=== PATIENT | female | born 1940 | race Caucasian/White ===

== ENCOUNTER 2017-04-03 21:01 | Observation (INO) ==
[2017-04-03 21:51] LABS: Basophils % 0.6 %; Eosinophils # 0.1 K/mcL (0.0-0.6); Eosinophils % 2.6 %; Hematocrit 33.7 % (35.3-44.9); Hemoglobin 10.7 g/dL (11.5-15.4); Immature Granulocytes % 0.2 % (0-4); Lymphocytes # 1.1 K/mcL (0.6-4.6); Lymphocytes % 24.1 %; Mean Corpuscular HGB Conc 31.8 g/dL (31.6-35.5); Mean Corpuscular Hemoglobin 26.8 pg (28.0-33.3); Mean Corpuscular Volume 84.3 fL (83.0-100.0); Mean Platelet Volume 9.6 fL (9.4-12.4); Monocytes # 0.5 K/mcL (0.0-1.3); Monocytes % 11.6 %; Neutrophils # 2.8 K/mcL (1.6-8.9); Platelet Count 252 K/mcL (140-400); Red Cell Distribution Width 16.6 % (11.5-14.5); Segmented Neutrophils % 60.9 %
--- NOTE | 2017-04-03 22:01 | Emergency Department Note ---
Disposition Clinical Impression: Chest pain Qualifiers: Chest pain type: unspecified Qualified Code(s): R07.9 - Chest pain, unspecified Disposition: Admitted As Inpatient Condition: Good Chest Pain HPI - General Chief Complaint: ED Chest Pain Stated Complaint: CP Time Seen by Provider: 04/03/17 21:11 Source: patient Mode of arrival: private vehicle Limitations: no limitations Vital Signs Reviewed: Yes Nursing Notes Reviewed: Yes - History of Present Illness HPI Narrative: 76-year-old female history of CABG in 1996, hypertension, hyperlipidemia who presents to the ER with a chief complaint of chest pain. Patient is a poor historian reporting that she has had chronic left shoulder pain and had a stress test yesterday ordered by her [employer] solution architect preoperatively. She was called today with results. She then goes on to say that she has had chest pain for a week. She had some chest pain today and took a nitroglycerin and the pain went away. She called whoever called her about her stress test result and they told her to go to the ER. She reports her pain came back and she took a second nitroglycerin but it did not do anything. She reports shortness of breath with this. No diaphoresis, dizziness, nausea or vomiting. No other complaints. Pt complaint: chest pain Onset (ago): day(s) Duration: intermittent Onset: during exertion Pain Location: substernal Severity: moderate Severity scale (1-10): 8 Quality: tightness, aching, heaviness, sharp Pain Radiation: none Improves with: nothing Worsens with: exertion Associated symptoms: Reports: dyspnea. Denies: nausea, vomiting, diaphoresis Treatments prior to arrival chest pain: none - Related Data On Oral Contraceptives: No Home Medications Medication Instructions Recorded Confirmed Amlodipine Besylate 10 mg PO DAILY 04/03/17 04/03/17 Aspirin Enteric Coated [Aspirin EC] 81 mg PO DAILY 04/03/17 04/03/17 Atorvastatin [Lipitor] 40 mg PO HS 04/03/17 04/03/17 Calcipotriene [Dovonex] 1 appl TP DAILY 04/03/17 04/03/17 Carvedilol [Carvedilol] 1.5625 mg PO BID 04/03/17 04/03/17 Diclofenac Sodium [Voltaren] 1 appl TP QID PRN 04/03/17 04/03/17 Furosemide [Lasix] 40 mg PO BID PRN 04/03/17 04/03/17 HYDROcodone/Acet 5/325 mg [[place] 1 tab PO Q6H PRN 04/03/17 04/03/17 5-325 mg] Iron With Vit C 1 tab PO BID 04/03/17 04/03/17 Losartan [Cozaar] 12.5 mg PO DAILY 04/03/17 04/03/17 Metformin HCl [Glucophage] 1,000 mg PO BID 04/03/17 04/03/17 Mirabegron [Myrbetriq] 50 mg PO DAILY 04/03/17 04/03/17 Multivitamin with Iron 1 each PO TID 04/03/17 04/03/17 [Multivitamins with Iron] Nitroglycerin 0.4 mg PO Q5M PRN 04/03/17 04/03/17 Saccharomyces Boulardii [Florastor] 250 mg PO DAILY 04/03/17 04/03/17 Vit E With D Alpha 1 tab PO DAILY 04/03/17 04/03/17 Allergies Allergy/AdvReac Type Severity Reaction Status Date / Time codeine Allergy Rash Verified 04/02/17 08:38 latex Allergy Rash Verified 04/02/17 08:38 Neomycin Allergy Rash Verified 04/02/17 08:38 Penicillins Allergy Rash Verified 04/02/17 08:38 povidone-iodine Allergy Rash Verified 04/02/17 08:34 [From Betadine] soap [From Betadine] Allergy Rash Verified 04/02/17 08:34 All systems ED: reviewed and negative except as stated. Constitutional: Denies: fever Cardiovascular: Reports: chest pain, dyspnea on exertion Respiratory: Reports: dyspnea. Denies: cough Gastrointestinal: Denies: abdominal pain, nausea, vomiting Chest Pain PMH - Past Medical History Medical history: Reports: CHF, diabetes, hyperlipidemia, hypertension Psychiatric history: Reports: no psych history - Social History Smoking Status: Former smoker Alcohol use: Reports: none Drug use: Reports: none Physical Exam - General Limitations: no limitations General appearance: alert, in no apparent distress - Head Head exam: atraumatic - Eye Eye exam: Present: normal appearance - ENT ENT exam: normal exam - Neck Neck exam: Present: normal inspection - Chest Chest inspection: Present: normal inspection, symmetric chest wall rise - Respiratory Respiratory exam: Present: normal lung sounds bilaterally - Cardiovascular Cardiovascular exam: Present: regular rate, normal rhythm, normal heart sounds - Abdominal Exam Abdominal exam: Present: soft, Non-Tender. Absent: tenderness - Extremities Exam Extremities exam: Present: normal inspection, full ROM - Expanded Upper Extremity Exam Shoulder exam: Present: normal inspection, full ROM Arm exam: Present: normal inspection, full ROM Elbow exam: Present: normal inspection, full ROM Forearm/Wrist exam: Present: normal inspection, full ROM Hand exam: Present: normal inspection, full ROM - Expanded Lower Extremity Exam Hip/Pelvis exam: Present: normal inspection, full ROM Upper leg exam: Present: normal inspection, full ROM Knee exam: Present: normal inspection, full ROM Lower leg exam: Present: normal inspection, full ROM Ankle exam: Present: normal inspection, full ROM Foot/toe exam: Present: normal inspection, full ROM - Skin Skin exam: Present: warm, dry Course Course Narrative: Patient seen and examined. Vital signs reviewed. We will get an EKG, chest x- ray as well as labs including troponin. We will give her aspirin here as well as a trial of nitroglycerin. - Reevaluation(s) Reevaluation #1: I reviewed her stress test results with mild perfusion deficit at the apex with inability to exclude ischemia. Vital Signs Temperature 99 F 04/03/17 21:05 Pulse Rate 90 04/03/17 21:05 Respiratory Rate 12 04/03/17 21:05 Blood Pressure 156/103 04/03/17 21:05 O2 Sat by Pulse Oximetry 96 04/03/17 21:05 Temperature 99 F 04/03/17 21:05 Pulse Rate 87 04/03/17 22:36 Respiratory Rate 18 04/03/17 22:36 Blood Pressure 120/62 04/03/17 22:36 O2 Sat by Pulse Oximetry 95 04/03/17 22:36 Oxygen Delivery Oxygen Delivery Room Air Chest Pain - MDM Narrative Medical decision making narrative: 76-year-old female presents to the ER due to chest pain. Prior history of CABG in 1996. She had a stress test yesterday preoperatively with shoulder repair in the near future. She was called with the results today then was having chest pain and took nitroglycerin and it improved so she was told to come in. Her pain has been going on longer which sounds like for the last week. She is a poor historian. Her EKG is nonischemic here. Chest x-ray unremarkable. Initial troponin within normal limits. Patient given aspirin, nitroglycerin and fentanyl here. She is admitted to the hospitalist service for chest pain. - Medical Records Medical records reviewed: Yes I reviewed the patient's medical records. Small sized, mild intensity decreased perfusion in the apex during stress. Mild ischemia cannot be excluded. Occasional PACs and short runs of SVT noted during stress. PVCs are observed during recovery. Pharmacologic stress ECG is negative for ischemia at level of heart rate achieved. No appreciable change from baseline ECG. Gated EF > 70%. - Lab Data Lab results reviewed: Yes I reviewed the patient's lab results. Result diagrams: 04/03/17 21:40 04/03/17 21:40 Lab Results 04/03/17 04/03/17 04/03/17 Range/Units 21:40 21:40 21:40 WBC 4.6 (4.3-11.1) K/mcL RBC 4.00 (3.82-4.97) M/mcL Hgb 10.7 L (11.5-15.4) g/dL Hct 33.7 L (35.3-44.9) % MCV 84.3 (83.0-100.0) fL MCH 26.8 L (28.0-33.3) pg MCHC 31.8 (31.6-35.5) g/dL RDW 16.6 H (11.5-14.5) % Plt Count 252 (140-400) K/mcL MPV 9.6 (9.4-12.4) fL Immature Gran % 0.2 (0-4) % Seg Neutrophils % 60.9 % Lymphocytes % 24.1 % Monocytes % 11.6 % Eosinophils % 2.6 % Basophils % 0.6 % Neutrophils # 2.8 (1.6-8.9) K/mcL Lymphocytes # 1.1 (0.6-4.6) K/mcL Monocytes # 0.5 (0.0-1.3) K/mcL Eosinophils # 0.1 (0.0-0.6) K/mcL Basophils # 0.0 (0.0-0.2) K/mcL PT 11.0 (9.4-12.1) Seconds INR 1.0 APTT 31.2 (26.0-36.0) Seconds Sodium (136-145) mEq/L Potassium (3.5-5.1) mEq/L Chloride (98-107) mEq/L Carbon Dioxide (23-29) mEq/L BUN (8-23) mg/dL Creatinine (0.60-1.20) mg/dL Est GFR ( Amer) (> 60) Est GFR (Non-Af Amer) (> 60) BUN/Creatinine Ratio (6-26) Glucose (70-105) mg/dL Calculated Osmolality (280-300) Calcium (8.6-10.3) mg/dL Troponin I (< 0.04) ng/mL B-Natriuretic Peptide 102 H (Less than 100) pg/mL 04/03/17 04/03/17 Range/Units 21:40 21:40 WBC (4.3-11.1) K/mcL RBC (3.82-4.97) M/mcL Hgb (11.5-15.4) g/dL Hct (35.3-44.9) % MCV (83.0-100.0) fL MCH (28.0-33.3) pg MCHC (31.6-35.5) g/dL RDW (11.5-14.5) % Plt Count (140-400) K/mcL MPV (9.4-12.4) fL Immature Gran % (0-4) % Seg Neutrophils % % Lymphocytes % % Monocytes % % Eosinophils % % Basophils % % Neutrophils # (1.6-8.9) K/mcL Lymphocytes # (0.6-4.6) K/mcL Monocytes # (0.0-1.3) K/mcL Eosinophils # (0.0-0.6) K/mcL Basophils # (0.0-0.2) K/mcL PT (9.4-12.1) Seconds INR APTT (26.0-36.0) Seconds Sodium 135 L (136-145) mEq/L Potassium 3.4 L (3.5-5.1) mEq/L Chloride 99 (98-107) mEq/L Carbon Dioxide 28 (23-29) mEq/L BUN 15 (8-23) mg/dL Creatinine 0.53 L (0.60-1.20) mg/dL Est GFR ( Amer) > 60 (> 60) Est GFR (Non-Af Amer) > 60 (> 60) BUN/Creatinine Ratio 28 H (6-26) Glucose 224 H (70-105) mg/dL Calculated Osmolality 288 (280-300) Calcium 9.5 (8.6-10.3) mg/dL Troponin I < 0.03 (< 0.04) ng/mL B-Natriuretic Peptide (Less than 100) pg/mL - Radiology Data Radiology results reviewed: Yes I reviewed the patient's radiology results. Chest X-Ray 04/03/17 21:12 IMPRESSION: No acute pulmonary process. D/ / 04/03/2017 21:47:11 Marilia Barros MD / rolando Interpreting Provider: Marilia Barros MD - EKG Data EKG attestation: Yes I reviewed and interpreted this EKG. EKG results narrative: EKG demonstrates sinus rhythm with PACs with a rate of 78 bpm. Normal axis. Normal intervals. Normal R-wave progression. No gross ST elevations or depressions. No acute ischemic findings. No significant changes from previous EKG dated 05/11/12 Heart Score - Score History: Slightly Suspicious EKG: Normal Age: Greater than 65 Risk Factors: Equal/Greater than 3 risk factor or history of atherosclerotic disease Troponin: Less than normal limit HEART Score Total: 4 S.B.A.R. - S.B.A.R. Situation: Demographics, MOA Background: Presenting Complaint, Relevant PMH, Meds, & Allergies Assessment: Course and respsone to treatment, Exam Concerns, Patient/Family Expectation, Pertinant Lab Results Recommendation: Barrier(s) to disposition, Recommendation based on pending studies, treatments, or consults S.B.A.R. Report Given to: Dr. Oshea [email or web address] Repor Time: 22:52 Attestation Statement - Attestation Attestation: I, Yehuda Garcia MD, personally evaluated this patient and discussed their management with the resident physician. I reviewed the resident's note and agree with the documented findings, medical decision making, and plan of care. 76-year-old female presents to the emergency department with a complaint of some left-sided chest pain in the left breast area radiating through to the left back. The pain also radiates to the left shoulder. Patient has chronic left shoulder pain and states she is unable to tell if this is from her shoulder or her heart or something else. She states this is different from her usual shoulder pain. She has a history of CABG and 5 coronary artery stents. She just had a stress test yesterday as part of a preoperative evaluation for shoulder surgery. Called today and advised that the stress test was abnormal. On examination patient is a well-developed well-nourished well-appearing elderly female in no acute distress. She is alert and oriented. There is no cyanosis or diaphoresis. Some tenderness to palpation over the left anterolateral chest wall. Breath sounds are clear and equal bilaterally. Heart regular rate and rhythm. Abdomen is soft and nontender with normal bowel sounds. Labs reviewed. Troponin negative. Chest x-ray negative. EKG shows a normal sinus rhythm with PACs. No acute ischemic changes. The hospitalist, Dr. Oshea, was consulted and accepted the admission of the patient.
[2017-04-03 22:06] LABS: Activated Partial Thrombo Time 31.2 Seconds (26.0-36.0)
[2017-04-03 22:09] LABS: BUN/Creatinine Ratio 28 (6-26); Blood Urea Nitrogen 15 mg/dL (8-23); Calcium 9.5 mg/dL (8.6-10.3); Carbon Dioxide 28 mEq/L (23-29); Chloride 99 mEq/L (98-107); Glucose 224 mg/dL (70-105); Osmolality,Calculated 288 (280-300); Potassium 3.4 mEq/L (3.5-5.1); Sodium 135 mEq/L (136-145); eGFR For African Americans > 60 (> 60); eGFR For Non-African Americans > 60 (> 60)
[2017-04-03] MEDS ORDERED: Aspirin 81 MG TAB.CHEW PO ONE (22:17)
[2017-04-03] MEDS: Nitroglycerin 0.4 MG TAB.SUBL SL PRN ×2 (22:24→22:37)
[2017-04-03] MEDS ORDERED: *HR* FentaNYL (PF) 100 MCG/2 ML VIAL IVP ONE (22:48)
[2017-04-04] MEDS ORDERED: Nitroglycerin 1 INCH/GM PACKET TP ONE (00:31)
[2017-04-04] MEDS ORDERED: Nitroglycerin 1 INCH/GM PACKET ONE (00:47)
[2017-04-04] MEDS ORDERED: *HR* FentaNYL (PF) 100 MCG/2 ML VIAL ONE ×2 (00:48→14:57)
[2017-04-04] MEDS: *HR* FentaNYL (PF) 100 MCG/2 ML VIAL IVP PRN ×2 (00:53→03:57)
[2017-04-04] MEDS ORDERED: *HR* Dextrose 50 % in Water (Syg) 50 ML SYRINGE IVP PRN (01:34)
[2017-04-04] MEDS ORDERED: Dextrose Gel 15 GM/37.5 ML TUBE PO PRN ×2 (01:34)
[2017-04-04] MEDS ORDERED: Acetaminophen 325 MG TABLET PO PRN (01:34)
[2017-04-04] MEDS ORDERED: Naloxone 0.4 MG/ML INJ IVP PRN (01:34)
[2017-04-04] MEDS ORDERED: D5% in Water 1,000 ML IVC PRN (01:34)
[2017-04-04] MEDS ORDERED: *HR* Heparin 5,000 UNIT/ML VIAL IVP PRN ×2 (01:53)
[2017-04-04] MEDS ORDERED: *HR* Heparin 5,000 UNIT/ML VIAL IVP ONE (01:53)
[2017-04-04] MEDS ORDERED: Heparin 25,000 UNIT/500 ML D5W 25,000 UNIT/500 ML BAG IVC SCH (02:00)
--- NOTE | 2017-04-04 02:03 | Internal Med History&Physical ---
Date of Encounter: 04/04/17 Time of Encounter: 01:20 Assessment and Plan (1) Chest pain Current visit: Yes Status: Acute 1. Based upon history and exam, I have a high clinical index of suspicion for PE. 2. I can not confirm whether patient has an IV Contrast Dye allergy. I therefore cancelled her CTA chest, started her on heparin gtt empirically, and ordered a VQ scan and BLE Dopplers for this morning. 3. If above negative, she will likely need LHC. 4. Consult cardiology. 5. Will cycle troponins and EKG's. Qualifiers: Chest pain type: chest pain on breathing Qualified Code(s): R07.1 - Chest pain on breathing; R07.81 - Pleurodynia (2) CAD (coronary artery disease) Current visit: Yes Status: Chronic 1. Continue home meds as appropriate. 2. Cardiac work-up and cardiology as above. Qualifiers: Coronary Disease-Associated Artery/Lesion type: bypass graft [place] vs. transplanted heart: [place] heart Associated angina: with stable angina Qualified Code(s): I25.708 - Atherosclerosis of coronary artery bypass graft(s) , unspecified, with other forms of angina pectoris (3) Type 2 diabetes mellitus Current visit: Yes Status: Chronic 1. Will hold home oral medications. 2. Will place on SSI and monitor glucose checks. Qualifiers: Diabetes mellitus complication status: with circulatory complication Diabetes mellitus complication detail: with other circulatory complications Diabetes mellitus longterm insulin use: without longterm use Qualified Code( s): E11.59 - Type 2 diabetes mellitus with other circulatory complications (4) DVT prophylaxis Current visit: Yes Status: Acute 1. Heparin gtt as above. Internal Medicine - H&P: HPI Chief complaint: chest pain Admitted From: Emergency Dept Plans for Post Hospital Care: Home History of present illness: Ms. Veras is a 76 year old female who presents the ER tonight with chest pain. She received a call earlier yesterday by her manager electronic office informing her that her stress test she had recently was abnormal and that she may require left heart catheterization. She had been having chest pain off and on for the last several weeks, which she thought was secondary to her left shoulder pain from arthritis. However, given the abnormal stress test and her ongoing chest pain, she was advised to come to ER for evaluation. Workup in the ER was negative. She was admitted to hospitalist service for further workup and care and possible cardiac intervention. Upon my assessment of the patient, patient is having periods of chest pain which are sharp in nature and associated with shortness of breath. She states the pain in her chest is different than her prior episodes of angina and MA. Upon further history, patient informs me that her mother of massive PE after giving to her sibling many years ago. There is no other family history of thromboembolism, however. Patient has never had DVT or PE in the past. However, her symptoms and body language are rather concerning for PE at the present time. I initially ordered a CTA of the chest. However, as I was ordering her CTA and noted that she is allergic to Betadine. I returned back to her room and inquired about her Betadine allergy, she states that she " swells up" and has a severe allergic reaction to Betadine. I asked her about IV dye allergy or any problems with left heart catheterization. She states she thinks she had received medication for her heart catheterization but was not sure if she needed to have premedication prior to IV contrast. I therefore canceled her CTA of the chest and I am placing her on heparin drip for high suspicion of PE. We will proceed with VQ scan and BLE Dopplers in the morning. She denies any blood loss or GI bleeding. Past Med Surg Social Fam HX - Past Medical History Attestation: Yes The following information was validated with the patient. Source: patient, old records reviewed Medical history: atrial fibrillation (paroxysmal), CHF, diabetes, hyperlipidemia , hypertension, myocardial infarction Psychiatric history: no psych history - Past Surgical History Surgical History: angioplasty/stent, coronary bypass (CABG) - Social History Smoking Status: Former smoker Smokeless Tobacco Status: No Alcohol use: none Drug use: none Current living situation: Home, With Family Activity Level: Independent ambulation - Family History Father Living Status: Age at : 48 Cause of : heart attack Hx Family Cardiac Disorders: Yes Mother Living Status: Age at : 37 Cause of : Blood clot Internal Medicine - H&P: Meds Amlodipine Besylate 10 mg PO DAILY 04/03/17 [History] Aspirin Enteric Coated [Aspirin EC] 81 mg PO DAILY 04/03/17 [History] Atorvastatin [Lipitor] 40 mg PO HS 04/03/17 [History] Calcipotriene [Dovonex] 1 appl TP DAILY 04/03/17 [History] Carvedilol [Carvedilol] 1.5625 mg PO BID 04/03/17 [History] Diclofenac Sodium [Voltaren] 1 appl TP QID PRN 04/03/17 [History] Furosemide [Lasix] 40 mg PO BID PRN 04/03/17 [History] HYDROcodone/Acet 5/325 mg [[place] 5-325 mg] 1 tab PO Q6H PRN 04/03/17 [History] Iron With Vit C 1 tab PO BID 04/03/17 [History] Losartan [Cozaar] 12.5 mg PO DAILY 04/03/17 [History] Metformin HCl [Glucophage] 1,000 mg PO BID 04/03/17 [History] Mirabegron [Myrbetriq] 50 mg PO DAILY 04/03/17 [History] Multivitamin with Iron [Multivitamins with Iron] 1 each PO TID 04/03/17 [History ] Nitroglycerin 0.4 mg PO Q5M PRN 04/03/17 [History] Saccharomyces Boulardii [Florastor] 250 mg PO DAILY 04/03/17 [History] Vit E With D Alpha 1 tab PO DAILY 04/03/17 [History] 3 Allergy/AdvReac Type Severity Reaction Status Date / Time codeine Allergy Rash Verified 04/02/17 08:38 latex Allergy Rash Verified 04/02/17 08:38 Neomycin Allergy Rash Verified 04/02/17 08:38 Penicillins Allergy Rash Verified 04/02/17 08:38 povidone-iodine Allergy Rash Verified 04/02/17 08:34 [From Betadine] soap [From Betadine] Allergy Rash Verified 04/02/17 08:34 - Constitutional Constitutional: no chills, no fever(s) - EENT Eyes: no blurry vision, no change in vision Ears: no ear pain Nose, mouth and throat: no nasal congestion, no sore throat - Cardiovascular Cardiovascular ROS IM: chest pain, dyspnea, palpitations, no diaphoresis, no lightheadedness - Respiratory Respiratory: dyspnea, dyspnea on exertion, no cough, no hemoptysis, no chest congestion, no excessive phlegm production, no change in phlegm color - Gastrointestinal Gastrointestinal: no abdominal pain, no diarrhea, no hematemesis, no hematochezia, no melena, no vomiting - Genitourinary Genitourinary: no dysuria, no flank pain, no hematuria - Musculoskeletal Musculoskeletal ROS IM: arthralgias, back pain - Integumentary Integumentary IM: no rash, no jaundice - Neurological Neurological ROS: no dizziness, no focal weakness, no frequent falls, no headache(s) - Psychiatric Psychiatric: no anxiety, no depression - Endocrine Endocrine IM: no polydipsia, no polyuria - Hematologic/Lymphatic Hematologic/Lymphatic: easy bruising, no lymphadenopathy - Allergic/Immunologic Allergic/Immunologic: no wheezing, no GI upset with certain foods - Constitutional Vitals: Temp Pulse Resp BP Pulse Ox 98.0 F 73 16 154/62 92 04/03/17 23:51 04/03/17 23:51 04/03/17 23:51 04/03/17 23:51 04/03/17 23:51 General appearance: Present: cooperative, mild distress, A&O X 3, pleasant, answers questions appropriately - Head Head exam: Present: atraumatic, normal inspection - Eye Eye exam: Present: EOMI, PERRL. Absent: scleral icterus Pupils: Present: normal accommodation - ENT ENT exam: Present: mucous membranes moist, normal exam - Neck Neck exam general surgery: Present: full ROM, supple. Absent: tenderness, nuchal rigidity - Respiratory Respiratory exam: Present: CTAB. Absent: accessory muscle use, chest wall tenderness, rales, respiratory distress, rhonchi, wheezes - Cardiovascular Cardiovascular exam: Present: +S1, +S2, systolic murmur. Absent: diastolic murmur Additional comments: occasional ectopic beat noted on auscultation - GI/Abdominal GI/Abdominal exam: Present: normal bowel sounds, soft. Absent: hepatomegaly, mass, splenomegaly, tenderness - Extremities Exam Extremities exam: Present: full ROM, warm, radial pulses palpable and symmetrical. Absent: calf tenderness, joint swelling, pedal edema - Back Exam Back exam: Absent: CVA tenderness (L), CVA tenderness (R) - Neurological Exam Neurological exam: Present: alert, CN II-XII intact, oriented X3, no focal deficits - Psychiatric Psychiatric exam: Present: normal affect, normal mood - Skin Skin exam: Present: dry, warm. Absent: rash Internal Med - H&P Results - Labs CBC & Chem 7: 04/03/17 21:40 04/03/17 21:40 - EKG Data -: EKG Interpreted by Myself - EKG Data EKG comments: 04/04/17 02:07 Initial EKG shows Atrial Fibrillation with no acute ST changes; repeat EKG shows sinus rhythm with PAC's and no acute ST-T changes - Diagnostic Studies Chest x-ray Status: image reviewed by me (negative)
[2017-04-04] MEDS: 0.9 % Sodium Chloride w KCl 20 MEQ/1,000 ML MLS IVC SCH ×2 (02:32→17:29)
[2017-04-04 04:07] LABS: Hematocrit 30.8 % (35.3-44.9); Hemoglobin 9.9 g/dL (11.5-15.4); Mean Corpuscular HGB Conc 32.1 g/dL (31.6-35.5); Mean Corpuscular Hemoglobin 26.6 pg (28.0-33.3); Mean Corpuscular Volume 82.8 fL (83.0-100.0); Mean Platelet Volume 9.6 fL (9.4-12.4); Platelet Count 212 K/mcL (140-400); Red Blood Count 3.72 M/mcL (3.82-4.97); Red Cell Distribution Width 16.6 % (11.5-14.5)
[2017-04-04 04:10] LABS: Basophils % 0.9 %; Eosinophils # 0.1 K/mcL (0.0-0.6); Eosinophils % 2.8 %; Hematocrit 30.9 % (35.3-44.9); Hemoglobin 9.8 g/dL (11.5-15.4); Immature Granulocytes % 0.2 % (0-4); Lymphocytes % 24.6 %; Mean Corpuscular HGB Conc 31.7 g/dL (31.6-35.5); Mean Corpuscular Hemoglobin 26.4 pg (28.0-33.3); Mean Corpuscular Volume 83.3 fL (83.0-100.0); Mean Platelet Volume 9.6 fL (9.4-12.4); Monocytes # 0.5 K/mcL (0.0-1.3); Monocytes % 12.8 %; Neutrophils # 2.5 K/mcL (1.6-8.9); Platelet Count 215 K/mcL (140-400); Red Blood Count 3.71 M/mcL (3.82-4.97); Red Cell Distribution Width 16.7 % (11.5-14.5); Segmented Neutrophils % 58.7 %
[2017-04-04 04:29] LABS: Alanine Aminotransferase 10 Units/L (7-52); Albumin 3.7 g/dL (3.5-5.7); Albumin/Globulin Ratio 1.4 (1.1-2.2); Alkaline Phosphatase 65 Units/L (34-104); Aspartate Amino Transferase 11 Units/L (13-39); BUN/Creatinine Ratio 26 (6-26); Bilirubin,Total 0.7 mg/dL (0.3-1.0); Blood Urea Nitrogen 11 mg/dL (8-23); Calcium 8.9 mg/dL (8.6-10.3); Carbon Dioxide 28 mEq/L (23-29); Chloride 103 mEq/L (98-107); Cholesterol 84 mg/dL (< 200); Globulin 2.6 g/dL (2.4-3.5); Glucose 208 mg/dL (70-105); HDL Cholesterol 41 mg/dL (40-59); LDL Cholesterol,Calculated 34 mg/dL (0-99); Magnesium 1.5 mg/dL (1.6-2.6); Osmolality,Calculated 293 (280-300); Potassium 3.2 mEq/L (3.5-5.1); Sodium 139 mEq/L (136-145); Total Protein 6.3 g/dL (6.4-8.9); Triglycerides 44 mg/dL (< 150); eGFR For African Americans > 60 (> 60); eGFR For Non-African Americans > 60 (> 60)
[2017-04-04] MEDS ORDERED: *HR* Heparin 5,000 UNIT/ML VIAL SQ SCH (06:00)
[2017-04-04] MEDS: Insulin LISPRO 300 UNITS/3 ML VIAL SQ SCH ×3 (06:17→17:48)
[2017-04-04] MEDS: *HR* HYDROcodone/Acet 5/325 mg TABLET PO PRN ×2 (06:20→23:02)
--- NOTE | 2017-04-04 08:47 | Cardiology Consult Note ---
<Tomasz Hartmann - Last Filed: 04/04/17 10:35> Date of Encounter: 04/04/17 Time of Encounter: 08:06 Assessment and Plan (1) Chest pain Current Visit: Yes Status: Acute Patient with abnormal Stress test as an outpatient that showed: "small sized, mild intesity decreased perfusion in the apex during stress, mild ischemia cannot be excluded." Patient describes some anginal type symptoms. There was concern for possible PE. V/Q scan low probability, BLE dopplers negative. Patient had LHC in 2012 which showed "severe two vessel CAD s/p CABG with 2 of 3 patent bypass grafts. The left ventricle is normal and has normal contractility EF 65%." The elected to maximize her medical therapy at that time and was started on Imdur and Ranexa. She is no longer taking these meds. She believes she stopped taking them due to cost. Discussed options with the patient of restarting Imdur and Ranexa vs. Pursuing LHC. Patient elects to pursue LHC. Cr 0.43, INR 1.0 Pt allergic to betadine, but not IV dye. Patient added on to schedule for later today. keep NPO. Qualifiers: Chest pain type: unspecified Qualified Code(s): R07.9 - Chest pain, unspecified (2) CAD (coronary artery disease) Current Visit: Yes Status: Chronic See Chest Pain Qualifiers: Coronary Disease-Associated Artery/Lesion type: bypass graft [place] vs. transplanted heart: [place] heart Associated angina: with stable angina Qualified Code(s): I25.708 - Atherosclerosis of coronary artery bypass graft(s) , unspecified, with other forms of angina pectoris Discussion w patient/family: The assessment and plan as outlined above was discussed with the patient and/or family members who expressed understanding and agreement. All questions were answered. Thank you for involving us in the care of your patient. Please call with any questions. History of Present Illness Consult date: 04/04/17 Requesting physician: Marvin Oshea Consult reason: Chest Pain; abnormal stress test Chief complaint: Chest Pain History of present illness: Ms. Veras is a 76 year old female c PMHx of CAD s/p CABG and Stents, a fib, htn , hld, DM who presented to [facility] due to being informed of abnormal out patient stress test result coupled with intermittent chest pain for the last several weeks. She reports the pain a sharp pain that radiates to her back, but also a pressure like pain like something is sitting on her chest. Patient reports associated SOB. Patient being worked up for PE as patient has family but no personal hx of PE. Patient has allergy to betadine so CTA was cancelled and V/Q scan and BLE dopplers ordered. Pt started on empiric heparin drip. Patient has had IVC before for prior LHCs. Patient unsure if she required premedication. Based on blood bank laboratory technologist report patient did not receive any premedication and tolerated dye load fine. Pt had abnormal out patient stress test on 04/02/17 that showed "small sized, mild intesity decreased perfusion in the apex during stress, mild ischemia cannot be excluded." Occasional PACs and short runs of SVT noted during stress. PVCs are observed during recovery. Pharmacologic stress ECG is negative for ischemia at level of heart rate achieved. No appreciable change from baseline ECG. Gated EF > 70%. Arrhythmia may have compromised gated data." Echo that same day showed: "LVEF 60%. Moderate left ventricular diastolic dysfunction. Mild concentric left ventricular hypertrophy. Normal right ventricular structure and function. Mild mitral regurgitation. Chordal RICHIE is present without LVOT obstruction. Mild aortic stenosis. Moderate tricuspid regurgitation. Mild-moderate pulmonic regurgitation. Moderate pulmonary hypertension. Left Ventricular Wall Motion: Rest Echo Findings The mid anterior septal and mid inferior lateral santo were not visualized. All other wall segments showed normal motion." ECHO from 08/17 showed: LVEF 60-65%. Normal LV chamber size and function. Mild concentric left ventricular hypertrophy. Mild left ventricular diastolic dysfunction. Atypical septal motion consistent with post-operative status. Normal right ventricular structure and function. Moderate to severely dilated left atrium. Mild aortic stenosis. Mean gradient 14 mmHg. Mild tricuspid regurgitation. Mild pulmonary hypertension. Left Ventricular Wall Motion: Rest Echo Findings All wall segments showed normal motion. In 2012 patient had LHC with grafts that showed severe two vessel CAD s/p CABG with 2 of 3 patent bypass grafts. The left ventricle is normal and has normal contractility EF 65%. occluded proximal LAD, 50% first diagonal branch occlusion , 60% diffuse stenosis of the first marginal branch, 60% diffuse stenosis on the second marginal branch which was a small vessel, proximal RCA had 80% stenosis, mid RCA was occluded. SVG to distal RCA was patent. DWYER to LAD was patent. Sequential SVG to first diagonal branch and first obtuse marginal branch was occluded. Circumflex coronary artery had a patent stent. Medical therapy was recommended at that time. Past Med Surg Social Fam HX - Past Medical History Medical history: atrial fibrillation (paroxysmal), CHF, diabetes, hyperlipidemia , hypertension, myocardial infarction Psychiatric history: no psych history - Past Surgical History Surgical History: angioplasty/stent, coronary bypass (CABG) - Social History Smoking Status: Former smoker Smokeless Tobacco Status: No Alcohol use: none Drug use: none - Family History Father Living Status: Age at : 48 Cause of : heart attack Hx Family Cardiac Disorders: Yes Mother Living Status: Age at : 37 Cause of : Blood clot Medications and Allergies Amlodipine Besylate 10 mg PO DAILY 04/03/17 [History] Aspirin Enteric Coated [Aspirin EC] 81 mg PO DAILY 04/03/17 [History] Atorvastatin [Lipitor] 40 mg PO HS 04/03/17 [History] Calcipotriene [Dovonex] 1 appl TP DAILY 04/03/17 [History] Carvedilol [Carvedilol] 1.5625 mg PO BID 04/03/17 [History] Diclofenac Sodium [Voltaren] 1 appl TP QID PRN 04/03/17 [History] Furosemide [Lasix] 40 mg PO BID PRN 04/03/17 [History] HYDROcodone/Acet 5/325 mg [[place] 5-325 mg] 1 tab PO Q6H PRN 04/03/17 [History] Iron With Vit C 1 tab PO BID 04/03/17 [History] Losartan [Cozaar] 12.5 mg PO DAILY 04/03/17 [History] Metformin HCl [Glucophage] 1,000 mg PO BID 04/03/17 [History] Mirabegron [Myrbetriq] 50 mg PO DAILY 04/03/17 [History] Multivitamin with Iron [Multivitamins with Iron] 1 each PO TID 04/03/17 [History ] Nitroglycerin 0.4 mg PO Q5M PRN 04/03/17 [History] Saccharomyces Boulardii [Florastor] 250 mg PO DAILY 04/03/17 [History] Vit E With D Alpha 1 tab PO DAILY 04/03/17 [History] 3 Allergy/AdvReac Type Severity Reaction Status Date / Time codeine Allergy Rash Verified 04/02/17 08:38 latex Allergy Rash Verified 04/02/17 08:38 Neomycin Allergy Rash Verified 04/02/17 08:38 Penicillins Allergy Rash Verified 04/02/17 08:38 povidone-iodine Allergy Rash Verified 04/02/17 08:34 [From Betadine] soap [From Betadine] Allergy Rash Verified 04/02/17 08:34 All Systems Review: A 10-system review of systems was performed and is negative for pertinent findings except as documented above in the HPI. Physical Examination Vital Signs, Last 4 Hours Temp Pulse Resp BP Pulse Ox 04/04/17 07:45 98.0 F 88 18 152/66 96 General: Conversant, No Apparent Distress HEENT: Atraumatic, Normocephaly, Mucus Membranes Moist Neck: No JVD Cardiac: Other (irregularly irregular, murmur present) Lungs: Normal Breath Sounds, No Wheeze, Rales, Rhonchi Neuro: Alert and responsive, No focal deficits noted Abdomen: Soft, Non-Tender Skin: No rashes noted on visualized skin Extremities: No Clubbing, No Cyanosis, Normal Pulses, Other (BLE edema) Results 04/04/17 03:56 04/04/17 03:56 Lab Results 04/04/17 04/04/17 04/04/17 03:56 03:56 03:56 WBC 4.2 L Hgb 9.8 L Hct 30.9 L Plt Count 215 Sodium 139 Potassium 3.2 L Chloride 103 Carbon Dioxide 28 BUN 11 Creatinine 0.43 L Glucose 208 H Calcium 8.9 Magnesium 1.5 L Total Bilirubin 0.7 AST 11 L ALT 10 Alkaline Phosphatase 65 Troponin I < 0.03 04/04/17 03:56 WBC 4.2 L Hgb 9.9 L Hct 30.8 L Plt Count 212 Sodium Potassium Chloride Carbon Dioxide BUN Creatinine Glucose Calcium Magnesium Total Bilirubin AST ALT Alkaline Phosphatase Troponin I Consult Discharge Plan - Plan Referrals: Colleen Chawla MD [Primary Care Provider] - <Terry Richardson - Last Filed: 04/04/17 11:03> Date of Encounter: 04/04/17 - Attending Attestation I examined this patient and my medical decision-making was reviewed with the Resident Physician. I agree with the documented findings, disposition and treatment plan as described except to the extent set forth below. Known CAD, S/P CABG. Presents with possible unstable angina. Recent stress test possible apical ischemia. Have discussed risks and benefits of left heart cath. She agrees to proceed. Assessment and Plan Discussion w patient/family: The assessment and plan as outlined above was discussed with the patient and/or family members who expressed understanding and agreement. All questions were answered. Thank you for involving us in the care of your patient. Please call with any questions. History of Present Illness History of present illness: Ms. Veras is a 76 year old female All Systems Review: A 10-system review of systems was performed and is negative for pertinent findings except as documented above in the HPI. Physical Examination Vital Signs, Last 4 Hours Temp Pulse Resp BP Pulse Ox 04/04/17 07:45 98.0 F 88 18 152/66 96 Results 04/04/17 03:56 04/04/17 03:56 Lab Results 04/04/17 04/04/17 04/04/17 03:56 03:56 03:56 WBC 4.2 L Hgb 9.8 L Hct 30.9 L Plt Count 215 APTT Sodium 139 Potassium 3.2 L Chloride 103 Carbon Dioxide 28 BUN 11 Creatinine 0.43 L Glucose 208 H Calcium 8.9 Magnesium 1.5 L Total Bilirubin 0.7 AST 11 L ALT 10 Alkaline Phosphatase 65 Troponin I < 0.03 04/04/17 04/04/17 03:56 10:27 WBC 4.2 L Hgb 9.9 L Hct 30.8 L Plt Count 212 APTT 44.5 H Sodium Potassium Chloride Carbon Dioxide BUN Creatinine Glucose Calcium Magnesium Total Bilirubin AST ALT Alkaline Phosphatase Troponin I
[2017-04-04] MEDS: amLODIPine 5 MG TABLET PO SCH (10:28)
[2017-04-04] MEDS: Aspirin Enteric Coated 81 MG Tablet PO SCH (10:28)
[2017-04-04] MEDS: Multivit/Ca/Min/Fe/FA 1 TAB TABLET PO SCH (10:29)
[2017-04-04] MEDS ORDERED: *HR* Heparin 10,000 UNIT/10 ML VIAL ONE (13:35)
[2017-04-04] MEDS ORDERED: ISOVUE-370 200 ML INFUS..BTL IV ONE (13:35)
[2017-04-04] MEDS ORDERED: 0.9 % Sodium Chloride 1,000 ML ONE ×2 (13:35→14:57)
[2017-04-04] MEDS ORDERED: Heparin 1,000 UNITS/500 mL 500 ML ONE (13:35)
--- NOTE | 2017-04-04 14:55 | Pre-Sedation Evaluation ---
Pre-sedation evaluation - Pre-sedation checklist Date of procedure: 04/04/17 Procedure: LHC Recent Vitals: Last Vital Signs Temp 98.0 F 04/04/17 07:45 Pulse 88 04/04/17 07:45 Resp 18 04/04/17 07:45 BP 152/66 04/04/17 07:45 Pulse Ox 96 04/04/17 07:45 Previous reaction to sedatives/anesthetics: Yes; explain in comment Possible difficult airway: No ASA Classification *see protocol: CLASS II-Mild systemic disease, CLASS III- Severe systemic disease Plan of Care: Pt appropriate candidate for procedure/moderate/conscious sedation
[2017-04-04] MEDS ORDERED: *HR* Midazolam HCl 2 MG/2 ML VIAL ONE (14:57)
--- NOTE | 2017-04-04 15:37 | Event Note ---
Date of Encounter: 04/04/17 Time of Encounter: 15:30 - Cardiology Event Note [facility] results reviewed with Dr. Carpio. No significant changes from previous [facility]. Med mgmt recommended. Discussed with Dr. Richardson, will add imdur 30 mg daily and increase coreg. Follow-up in the outpatient setting. Cardiology will sign-off.
--- NOTE | 2017-04-04 16:05 | Invasive Diagnostic Lab Proc ---
Name: Mitch Veras Date of Study: 04/04/2017 Date: 1940 Ht: 68.1in Medical Record#: [id number] Age: 76 Wt: 167.55lb Gender: Female BSA: 1.9 Order #: [id number] BMI: 25.39 Physicians Procedure Physician: Kristofer Carpio MD Referring MD: Referring MD: Staff Name Position Time In Sites, Lisha RT (R) Monitor 03:06 PM Lisha Junior RT (R) Scrub 03:07 PM Geoffrey Chio RN Acetylene Burner 03:07 PM Indications Indication Abnormal Test - Stress Unstable Angina Procedures Performed Procedure CORONARY ART/GRFT ANGIO S&I Pre-Procedure Checklist Informed consent is complete signed and on chart. H&P is on chart. ID band is on and ID verified with patient. Patient NPO for procedure The procedure was described for the patient and questions were answered. Blood Pressure: 152/66 ECG is on chart. Rhythm: NSR Plan of Care Patient will tolerate the procedure without complications. Adequate level of comfort will be maintained. Hemodynamics will remain stable Patient will recover from procedure without complications. Respiratory function will be maintained. Cardiac rhythm will remain stable. Patient temperature will be maintained. Patient and/or family have verbalized understanding of the procedure. Patient Education Chief Complaint/Reason for Test: Cardiac Cath Developmental Category: Geriatric (65+ years) Developmentally Appropriate for Age: Yes Learning Barriers: None Education Needs: Procedure Education Method: Verbal Information Taught: Cardiac Cath Educational Evaluation: Able to repeat information Intravenous Access Time IV Size Location DC'd Fluid/Drip Rate Units RN 01:28 PM 20g 1 /" Patent On Arrival Lt Antecubital 0.9NaCl 25 ml/hr Geoffrey Choi RN Allergies soap povidone-iodine Penicillins codeine Neomycin Neomycin, Betadine, Codeine, PCN, Latex tape Vital Signs Time BP (mmHg) HR (bpm) O2 Sat. RR (bpm) LOC 01:28 PM 152 / 66 88 96 % 18 5 = Fully awake and oriented or at pre-proc level 03:08 PM / % 4 = Oriented but drowsy 02:59 PM 161 / 75 78 100 % 26 03:04 PM 139 / 72 70 100 % 20 03:09 PM 149 / 69 76 100 % 33 03:14 PM 145 / 67 74 100 % 20 03:19 PM 139 / 59 78 100 % 30 03:24 PM 135 / 72 76 100 % 27 03:29 PM 133 / 64 79 100 % 27 Procedural Medications Time Medication Dose Units Method Given By 03:07 PM Oxygen 2 L/min nasal cannula Geoffrey Choi RN 03:07 PM Versed 1 mg Intravenous ZiggythorneGeoffrey RN 03:07 PM Fentanyl 50 mcg Intravenous CarolynornGeoffrey fish RN 03:08 PM Versed 0.5 mg Intravenous ZiggythorneGeoffrey RN 03:08 PM Lidocaine 2% 10 ml Subcutaneous Kristofer Carpio MD 03:08 PM Fentanyl 25 mcg Intravenous Geoffrey Choi RN Fabio Score Preprocedure Postprocedure Activity 2- Moves 4 extremities sustained head lift Activity 2- Moves 4 extremities sustained head lift Circulation 2- SBP +/= 20 points of pre-anesthetic level Circulation 2- SBP +/= 20 points of pre-anesthetic level Consciousness 2- Awake and alert oriented x 3 Consciousness 2- Awake and alert oriented x 3 O2 Saturation 2- Able to maintain O2 satruation of 92% on room air O2 Saturation 2- Able to maintain O2 satruation of 92% on room air Respiratory 2- Able to deep breathe and cough well Respiratory 2- Able to deep breathe and cough well Total Score 10 Total Score 10 Contrast Agent: Isovue Fluoro Dose: 364 mGy Procedure Log Time Note Enter By 02:52 PM CathStat 02:52 PM [ Start or Stop Vital ] 02:53 PM Pt arrived to construction or leak gang laborer 2 at 14:52 twilson 02:53 PM Physician arrived 14:53 tw 02:53 PM Meet and greet completed 02:53 PM Sign in performed according to hospital policy. tw 02:53 PM Procedure start 14:53 twilson 02:53 PM Patient charges- Angio tray pack, Navilyst 3mm J, Pulse Oximetry and ACIST tubing and transducer tw 02:53 PM IV Supplies used: J loop Angio Cath. tw 02:53 PM Case Delayed no twilson 02:58 PM Vitals capture started with the following parameters, Patient=Adult, Interval=5 min, Initial Yyzkozrf=589 mmHg, Deflation Rate=5 mmHg, Cuff placed on Right Arm 02:59 PM HR=78 bpm, THPU=220/75 mmhg, TdZ2=102.0 %, Resp=26 B/min 03:04 PM HR=70 bpm, VAVF=930/72 mmhg, YhG3=426 %, Resp=20 B/min 03:06 PM Pressure channel 1 zeroed. 03:06 PM Lisha Fountain RT (R) Position: Monitor Time in: 15:06 twilson 03:07 PM Lisha Junior RT (R) Position: Scrub Time in: 15: twilson 03:07 PM Geoffrey Choi RN Position: Acetylene Burner Time in: 15: twilson 03:07 PM Hair removed from procedure site in holding area using clippers. Bilateral groin prepped with Chloraprep by Lisha Fountain RT (R), safety strap applied then patient was draped. Skin intact. [email or web address] 03:07 PM Time: 15:07 Oxygen on at 2 L/min per nasal cannula by Geoffrey Choi RN 03:07 PM Time: 15:07 Versed 1 mg Intravenous Given by Geoffrey Choi RN 03:08 PM Time: 15:07 Fentanyl 50 mcg Intravenous Given by Geoffrey Choi RN 03:08 PM Time: 15:08 Patient comfortable and pain free: Yes twilson 03:08 PM Time: 15:08LOC: 4 = Oriented but drowsy twilson 03:08 PM Time: 15:08 Versed 0.5 mg Intravenous Given by Geoffrey Choi RN twilson 03:08 PM Clinical Presentation: Unstable angina twilson 03:08 PM Time out performed according to hospital policy twilson 03:08 PM Time: 15:08 10 ml Lidocaine 2% to right groin Subcutaneous Given by Kristofer Carpio MD twkhari 03:09 PM HR=76 bpm, QFRK=287/69 mmhg, VxK5=118.0 %, Resp=33 B/min 03:09 PM Time: 15:08 Fentanyl 25 mcg Intravenous Given by Geoffrey Choi RN twkhari 03:10 PM Unsuccessful access attempt # 1 into the right Femoral artery. Manual pressure applied to achieve hemostasis.. twilson 03:10 PM Micro-Introducer Kit utilized for sheath placement twilson 03:12 PM 4cc of contrst injected into the rt femoral artery tsites 03:13 PM Access obtained by percutaneous puncture. 6Fr 10cm Terumo Greig sheath placed in right Femoral artery. [id number] tsites 03:13 PM 5Fr FR 4 catheter inserted over the wire DN tsites 03:13 PM 0.035 145cm Navilyst 3mmJ wire [id number] tsites 03:14 PM HR=74 bpm, CQVG=576/67 mmhg, AnV0=097.0 %, Resp=20 B/min 03:14 PM RCA angiography performed in multiple views. tsites 03:14 PM Recorded Pressure: Ao, HR=78, Condition=Condition 1 (Aorta) Ao 116/44/69 03:15 PM SVG to the RPDA angio performed in multiple views. tsites 03:15 PM Recorded Pressure: Ao, HR=81, Condition=Condition 1 (Aorta) Ao 95/58/77 03:18 PM Left WATSON to the LAD angio performed in multiple views. tsites 03:19 PM HR=78 bpm, CTOK=167/59 mmhg, YvI3=735.0 %, Resp=30 B/min 03:21 PM wire reinserted catheter removed tsites 03:21 PM 5Fr FL 4 catheter inserted over the wire [facility] tsites 03:22 PM LCA angiography performed in multiple views. tsites 03:22 PM Recorded Pressure: Ao, HR=87, Condition=Condition 1 (Aorta) Ao 92/59/75 03:24 PM HR=76 bpm, ZETT=563/72 mmhg, UvD2=477.0 %, Resp=27 B/min 03:25 PM wire reinserted catheter removed tsites 03:25 PM 5Fr Pigtail catheter inserted over the wire DN tsites 03:26 PM did not cross lv tsites 03:26 PM wire reinserted catheter removed tsites 03:29 PM HR=79 bpm, SDTP=799/64 mmhg, EyY8=656 %, Resp=27 B/min 03:31 PM Physician reviewing films tsites 03:33 PM Procedure completed at 15:33 tsites 03:33 PM Sign out completed: Radiation Dose 364 mGy Fluoro Time: 4.9 Isovue 370 - 200ml contrast ml given by Kristofer Carpio MD. Complications: NoneCardiac Rehab Consult needed: NoConfirmed administered medications: Yes tsites 03:33 PM Isovue 370 - 200ml,1 Bottle(s) used. tsites 03:36 PM Arterial sheath pulled using manual compression and V+ Pad for 15 minutes by Lisha Junior RT (R) tsites 03:36 PM Estimated Blood Loss: minimal tsites 03:36 PM Post ECG NSR tsites 03:36 PM Post Blood Pressure 142/76 tsites 03:37 PM 15:36 Post Pulses Bilateral DP & PT 1+ tsites 03:37 PM Information taught Cardiac Cath tsites 03:37 PM Education needs Procedure, Plan of Care, and Responsibilities of Patient in Care tsites 03:37 PM Learning barriers :None tsites 03:37 PM Education Methods Verbal tsites 03:37 PM Education evaluation Able to repeat information tsites 03:42 PM Coronary Dominance: right tsites 03:42 PM Lesion found in Mid RCA. Pre Stenosis: 100 Pre SHARLA Flow: tsites 03:42 PM Lesion found in Mid LAD. Pre Stenosis: 100 Pre SHARLA Flow: tsites 03:42 PM Lesion found in 1st Marginal. Pre Stenosis: 75 Pre SHARLA Flow: tsites 03:42 PM Lesion found in 2nd Marginal. Pre Stenosis: 60 Pre SHARLA Flow: tsites 03:43 PM Lesion found in Right PDA. Pre Stenosis: 60 Pre SHARLA Flow: tsites 03:43 PM Mid/Distal Left Anterior Descending Coronary Artery and diagonal branches with 100% stenosis. If graft is supplying this area, 0 % stenosis tsites 03:43 PM Circumflex, Obtuse Marginal, Left Posterior Descending, and Left Posterolateral Coronary Arteries with 75 % stenosis. If graft is supplying this area, 0 % stenosis tsites 03:43 PM Right Coronary, Right Posterior Descending Arteries with Right Posterolateral and Acute Marginal branches with 100 % stenosis. If graft is supplying this area, 0 % stenosis tsites 03:47 PM Report given to RN Pt taken to 3B Room #53. 15:47 tsites 03:47 PM Delay to floor No tsites 03:47 PM Patient out of room: 15:47 tsites 03:47 PM Family placed in consult room. tsites 03:47 PM Site status No bleeding/hematoma - Rt Groin as reported by Lisha Junior RT (R) at 15:47 tsites 03:47 PM Opsite applied tsites Complications Complication None Hemodynamics Pressures Site Systolic/A Wave Diastolic/V Wave Mean AO 116 44 69 AO 95 58 77 AO 92 59 75 Post Procedure Information Blood Pressure: 142/76 mmHg Rhythm: NSR Post procedural instructions were given Closure Device Time Device Success/Fail 04/04/2017 3:43:00 PM Manual Compression Successful Site Checks Time Location Status Staff Sheath In? Note 03:47 PM Rt Groin No bleeding/hematoma Lisha Junior RT (R) Pulses Time Site Pre-Procedure Post-Procedure Note 04/04/2017 1:28:00 PM Bilateral DP & PT 2+ 04/04/2017 1:28:00 PM Bilateral radial None 3:36:00 PM Bilateral DP & PT 1+ Updated by Lisha Fountain RT (R) on 04/04/2017 3:56:47 PM Lisha Fountain RT electronically signed on 04/04/2017 3:57:05 PM with status of Final
--- NOTE | 2017-04-04 18:00 | Electrocardiograph Report ---
[address] [address] Test Date: 2017-04-03 Pat Name: Mitch Veras Department: 102 Room: [facility] Gender: F Kettle Cleaner: [facility] : 1940 Requested By: David North Order Number: [id number] Reading MD: Terry Richardson Measurements Intervals [place] Rate: 78 P: [place]: 0 QRS: 0 QRSD: 92 T: 12 QT: 361 QTc: 394 Interpretive Statements SINUS RHYTHM ABNORMAL RHYTHM ECG Electronically Signed On 04-04-2017 17:58:34 EST by Terry Richardson
--- NOTE | 2017-04-04 18:02 | Electrocardiograph Report ---
[place] [address] Test Date: 2017-04-04 Pat Name: Mitch Veras Department: 113 Room: [facility] Gender: F Underwriting Consultant: : 1940 Requested By: Marvin Oshea Order Number: [id number] Reading MD: Terry Richardson Measurements Intervals [place] Rate: 84 P: 87 MT: 167 QRS: 32 QRSD: 89 T: 40 QT: 370 QTc: 412 Interpretive Statements SINUS RHYTHM WITH OCCASIONAL SUPRAVENTRICULAR PREMATURE COMPLEXES NONSPECIFIC T-WAVE ABNORMALITY Electronically Signed On 04-04-2017 18:00:25 EST by Terry Richardson
--- NOTE | 2017-04-04 18:08 | Electrocardiograph Report ---
[address] [place], [place] [address] Test Date: 2017-04-04 Pat Name: Mitch Veras Department: 113 Room: [facility] Gender: F Distribution Center Associate: : 1940 Requested By: Marvin Oshea Order Number: [id number] Reading MD: Terry Richardson Measurements Intervals [place] Rate: 59 P: 65 AK: 159 QRS: 31 QRSD: 78 T: 31 QT: 385 QTc: 385 Interpretive Statements SINUS BRADYCARDIA Electronically Signed On 04-04-2017 18:06:48 EST by Terry Richardson
--- NOTE | 2017-04-04 18:41 | Internal Med Progress Note ---
Date of Encounter: 04/04/17 Time of Encounter: 18:00 - Assessment and plan (1) Chest pain Current Visit: Yes Status: Acute Assessment and plan: 1 patient has been experiencing chest pain for the past 2 weeks she had abnormal stress as an outpatient. She underwent left heart catheter today which did revealLHC : No significant changes from previous [facility]. Med mgmt recommended. Discussed with Dr. Richardson, will add imdur 30 mg daily and increase coreg. Follow-up in the outpatient setting. Qualifiers: Chest pain type: unspecified Qualified Code(s): R07.9 - Chest pain, unspecified (2) CAD (coronary artery disease) Current Visit: Yes Status: Chronic Assessment and plan: We will continue with aspirin and beta nimisha statin Imdur Nitrates as needed for chest pain Qualifiers: Coronary Disease-Associated Artery/Lesion type: bypass graft [place] vs. transplanted heart: [place] heart Associated angina: with stable angina Qualified Code(s): I25.708 - Atherosclerosis of coronary artery bypass graft(s) , unspecified, with other forms of angina pectoris (3) Type 2 diabetes mellitus Current Visit: Yes Status: Chronic Assessment and plan: Accu-Cheks before meals at bedtime with sliding scale insulin Qualifiers: Diabetes mellitus complication status: with circulatory complication Diabetes mellitus complication detail: with other circulatory complications Diabetes mellitus termite exterminator helper insulin use: without group home use Qualified Code( s): E11.59 - Type 2 diabetes mellitus with other circulatory complications (4) Hypokalemia Current Visit: Yes Status: Acute Assessment and plan: Potassium was 3.2 this a.m. presently receiving one half normal saline with 20 KCl IV 75 an hour. We will recheck potassium in a.m. continuous cardiac monitoring (5) DVT prophylaxis Current Visit: Yes Status: Chronic Assessment and plan: Heparin - Time Spent With Patient less than 15 minutes - Subjective Interval history: Patient had abnormal outpatient stress test on 04/02/17 that showed small sized mild intensity decreased perfusion in the apex during stress mild ischemia cannot be excluded. She had been having chest pain for the last several weeks. She underwent left heart catheter today tolerated procedure well no abnormal bleeding at this time. She is denying any chest pain or shortness of breath. She is hemodynamically stable at this time. She is expected to be discharged in the a.m. - Constitutional Vitals: Temp Pulse Resp BP Pulse Ox 98.0 F 78 18 158/69 94 04/04/17 07:45 04/04/17 17:39 04/04/17 17:39 04/04/17 17:39 04/04/17 17:39 General appearance: Present: cooperative, mild distress, A&O X 3, pleasant, answers questions appropriately - Head Head exam: Present: atraumatic, normocephalic - Eye Eye exam: Present: PERRL, conjuntiva pink, sclera anicteric Pupils: Present: PERRL - Neck Neck exam general surgery: Present: supple, trachea midline. Absent: lymphadenopathy - Respiratory Respiratory exam: Present: CTAB. Absent: accessory muscle use, rales, rhonchi, wheezes - Cardiovascular Cardiovascular exam: Present: RRR, +S1, +S2. Absent: diastolic murmur, gallop, rubs, systolic murmur - GI/Abdominal GI/Abdominal exam: Present: normal bowel sounds, soft, no peritoneal signs. Absent: distended, tenderness - Extremities Exam Extremities exam: Present: warm, radial pulses palpable and symmetrical. Absent : calf tenderness, cyanotic, pedal edema - Neurological Exam Neurological exam: Present: CN II-XII intact, oriented X3, no focal deficits. Absent: pronater drift, facial droop, speech deficit - Skin Skin exam: Present: dry, intact Internal Medicine: Result - Labs CBC & Chem 7: 04/04/17 03:56 04/04/17 03:56 Labs: Short CBC 04/04/17 04/04/17 Range/Units 03:56 03:56 WBC 4.2 L 4.2 L (4.3-11.1) K/mcL Hgb 9.8 L 9.9 L (11.5-15.4) g/dL Hct 30.9 L 30.8 L (35.3-44.9) % Plt Count 215 212 (140-400) K/mcL Neutrophils # 2.5 (1.6-8.9) K/mcL BMP 04/04/17 03:56 Sodium 139 Potassium 3.2 L Chloride 103 Carbon Dioxide 28 BUN 11 Creatinine 0.43 L Glucose 208 H Calcium 8.9 Cardiac Enzymes 04/04/17 04/04/17 Range/Units 03:56 10:27 Troponin I < 0.03 < 0.03 (< 0.04) ng/mL Liver Function 04/04/17 Range/Units 03:56 Total Bilirubin 0.7 (0.3-1.0) mg/dL AST 11 L (13-39) Units/L ALT 10 (7-52) Units/L Alkaline Phosphatase 65 (34-104) Units/L Albumin 3.7 (3.5-5.7) g/dL - ABG Interpretation ABG results: PT/INR, D-dimer PT 11.0 Seconds (9.4-12.1) 04/03/17 21:40 - Impressions Impressions Pulmonary Perfusion Imaging 04/04/17 01:53 IMPRESSION: 1. Low Probability for Pulmonary Embolus. D/ / Clarence Leslie MD / Clarence Leslie MD Interpreting Provider: Clarence Leslie MD - Diagnostic Studies MRI - head Additional comments: LHC per cardiology [facility] results reviewed Dr. Carpio. No significant changes from previous [facility]. Med mgmt recommended. Discussed with Dr. Richardson, will add imdur 30 mg daily and increase coreg. Follow-up in the outpatient setting. Cardiology will sign-of Consult Discharge Plan - Plan Referrals: Colleen Chawla MD [Primary Care Provider] -
[2017-04-05] MEDS: Insulin LISPRO 300 UNITS/3 ML VIAL SQ SCH ×2 (00:27→05:40)
[2017-04-05 04:12] LABS: Basophils % 0.7 %; Eosinophils # 0.1 K/mcL (0.0-0.6); Eosinophils % 2.1 %; Hematocrit 30.9 % (35.3-44.9); Hemoglobin 9.9 g/dL (11.5-15.4); Immature Granulocytes % 0.2 % (0-4); Lymphocytes % 23.5 %; Mean Corpuscular Hemoglobin 26.6 pg (28.0-33.3); Mean Corpuscular Volume 83.1 fL (83.0-100.0); Mean Platelet Volume 9.7 fL (9.4-12.4); Monocytes # 0.7 K/mcL (0.0-1.3); Monocytes % 15.6 %; Neutrophils # 2.5 K/mcL (1.6-8.9); Platelet Count 235 K/mcL (140-400); Red Blood Count 3.72 M/mcL (3.82-4.97); Red Cell Distribution Width 16.6 % (11.5-14.5); Segmented Neutrophils % 57.9 %
[2017-04-05 04:39] LABS: BUN/Creatinine Ratio 18 (6-26); Blood Urea Nitrogen 8 mg/dL (8-23); Calcium 8.9 mg/dL (8.6-10.3); Carbon Dioxide 29 mEq/L (23-29); Chloride 105 mEq/L (98-107); Glucose 137 mg/dL (70-105); Osmolality,Calculated 284 (280-300); Potassium 3.5 mEq/L (3.5-5.1); Sodium 137 mEq/L (136-145); eGFR For African Americans > 60 (> 60); eGFR For Non-African Americans > 60 (> 60)
[2017-04-05 07:02] VITALS: BP 117/70
--- NOTE | 2017-04-05 08:24 | Discharge Summary ---
Date of Encounter: 04/05/17 Time of Encounter: 11:30 - Discharge Diagnosis (1) Chest pain Priority: Primary Status: Acute Comments: 1 patient has been experiencing chest pain for the past 2 weeks she had abnormal stress as an outpatient. She underwent left heart catheter yesterday which did revealLHC : No significant changes from previous [facility]. Med mgmt recommended. per- Dr. Richardson, will add imdur 30 mg daily and increase coreg per cardiology recommendations Follow-up in the outpatient setting. Qualifiers: Chest pain type: unspecified Qualified Code(s): R07.9 - Chest pain, unspecified (2) CAD (coronary artery disease) Priority: Secondary Status: Chronic Comments: We will continue with aspirin and beta nimisha statin Imdur Nitrates as needed for chest pain Qualifiers: Coronary Disease-Associated Artery/Lesion type: bypass graft [place] vs. transplanted heart: [place] heart Associated angina: with stable angina Qualified Code(s): I25.708 - Atherosclerosis of coronary artery bypass graft(s) , unspecified, with other forms of angina pectoris (3) Type 2 diabetes mellitus Priority: Secondary Status: Chronic Comments: cont with home medications Qualifiers: Diabetes mellitus complication status: with circulatory complication Diabetes mellitus complication detail: with other circulatory complications Diabetes mellitus intermediate insulin use: without watermelon inspector use Qualified Code( s): E11.59 - Type 2 diabetes mellitus with other circulatory complications (4) Hypokalemia Priority: Secondary Status: Resolved Comments: resolved - Discharge Medications Prescriptions: Carvedilol [Coreg] 3.25 mg PO BIDWM #60 tablet Isosorbide MONOnitrate (24 HR) [Imdur] 30 mg PO DAILY #30 tab.er.24h Home Medications: Amlodipine Besylate 10 mg PO DAILY 04/03/17 [History] Aspirin Enteric Coated [Aspirin EC] 81 mg PO DAILY 04/03/17 [History] Atorvastatin [Lipitor] 40 mg PO HS 04/03/17 [History] Calcipotriene [Dovonex] 1 appl TP DAILY 04/03/17 [History] Diclofenac Sodium [Voltaren] 1 appl TP QID PRN 04/03/17 [History] Furosemide [Lasix] 40 mg PO BID PRN 04/03/17 [History] HYDROcodone/Acet 5/325 mg [[place] 5-325 mg] 1 tab PO Q6H PRN 04/03/17 [History] Iron With Vit C 1 tab PO BID 04/03/17 [History] Losartan [Cozaar] 12.5 mg PO DAILY 04/03/17 [History] Metformin HCl [Glucophage] 1,000 mg PO BID 04/03/17 [History] Mirabegron [Myrbetriq] 50 mg PO DAILY 04/03/17 [History] Multivitamin with Iron [Multivitamins with Iron] 1 each PO TID 04/03/17 [History ] Nitroglycerin 0.4 mg PO Q5M PRN 04/03/17 [History] Saccharomyces Boulardii [Florastor] 250 mg PO DAILY 04/03/17 [History] Vit E With D Alpha 1 tab PO DAILY 04/03/17 [History] Carvedilol [Coreg] 3.25 mg PO BIDWM #60 tablet 04/05/17 [Rx] Isosorbide MONOnitrate (24 HR) [Imdur] 30 mg PO DAILY #30 tab.er.24h 04/05/17 [ Rx] Allergies/Adverse Reactions: 3 Allergy/AdvReac Type Severity Reaction Status Date / Time codeine Allergy Rash Verified 04/02/17 08:38 latex Allergy Rash Verified 04/02/17 08:38 Neomycin Allergy Rash Verified 04/02/17 08:38 Penicillins Allergy Rash Verified 04/02/17 08:38 povidone-iodine Allergy Rash Verified 04/02/17 08:34 [From Betadine] soap [From Betadine] Allergy Rash Verified 04/02/17 08:34 Procedures/tests Complete & Pending: Procedures Performed prior 72 hours Category Date Time Status CL Cardiac Catheterization [CL] Routine Life Scientist 04/04/17 11:16 Ordered NM pul vent and perfuse [NM] Routine Exams 04/04/17 01:53 Completed ECG 12 lead ECG [ECG] AM 0600 Y 04/04/17 06:00 Completed EKG [ECG 12 lead ECG] [ECG] Stat Y 04/04/17 00:34 Completed Venous Doppler [EV venous imaging LE BI] Routine Y 04/04/17 01:53 Completed Date of admission: 04/03/17 22:58 Primary care physician: Colleen Chawla, Consults: 04/04/17 01:41 Consult to Physician [CONS] Routine Consulting Provider: Terry Richardson Reason for Consult: chest pain; abnormal stress test Call Completed: No Discharging clinician: Kassidy Ramirez Anticipated date of discharge: 04/05/17 - Patient Status Disposition: Home, Self-Care Condition: Good Functional capacity at discharge: independent ambulation Overall status at discharge: patient is progressing back to baseline - Discharge Instructions Instructions: Chest Pain (DC), Diabetes Mellitus Type 2 in Adults (DC) Follow Up With: Colleen Chawla MD [Primary Care Provider] - Terry Richardson MD [Partnered Physician] - - Diet and Activity Activity: increase activity as tolerated Diet: diabetic diet Hospital course: Ms. Veras is a 76 year old female medical history of CHF diabetes hyperlipidemia hypertension [place] CABG with stent placement in the past. Patient had abnormal outpatient stress test on 04/02/17 that showed small sized mild intensity decreased perfusion in the apex during stress mild ischemia cannot be excluded. She did have previous chest pain for the last several weeks she underwent left heart catheter yesterday heart catheter results revealed no changes from previous left heart catheter medical management recommended per cardiology. Per cardiology will add Imdur 30 mg daily and increase Coreg patient is to follow-up in outpatient setting with cardiology. Presently patient is chest pain-free no active bleeding noted. She is hemodynamically stable at this time I reviewed medications as well as follow-up appointments patient verbalized understanding and she is ready for discharge. Time spent discussing smoking cessation with patient: 3 to 10 minutes - Time Spent with Patient Total time spent providing and/or coordinating discharge services: Less than 30 minutes - Constitutional Vitals: Temp Pulse Resp BP Pulse Ox 98.0 F 69 18 117/70 94 04/05/17 06:58 04/05/17 06:58 04/05/17 06:58 04/05/17 06:58 04/05/17 06:58 General appearance: Present: cooperative, mild distress, A&O X 3, pleasant, answers questions appropriately - Head Head exam: Present: atraumatic, normocephalic - Eye Eye exam: Present: PERRL, conjuntiva pink, sclera anicteric Pupils: Present: PERRL - Neck Neck exam general surgery: Present: supple, trachea midline. Absent: lymphadenopathy - Respiratory Respiratory exam: Present: CTAB. Absent: accessory muscle use, rales, rhonchi, wheezes - Cardiovascular Cardiovascular exam: Present: RRR, +S1, +S2. Absent: diastolic murmur, gallop, rubs, systolic murmur - GI/Abdominal GI/Abdominal exam: Present: normal bowel sounds, soft, no peritoneal signs. Absent: distended, tenderness - Extremities Exam Extremities exam: Present: warm, radial pulses palpable and symmetrical. Absent : calf tenderness, cyanotic, pedal edema - Neurological Exam Neurological exam: Present: CN II-XII intact, oriented X3, no focal deficits. Absent: pronater drift, facial droop, speech deficit - Skin Skin exam: Present: dry, intact
[2017-04-05] MEDS: Multivit/Ca/Min/Fe/FA 1 TAB TABLET PO SCH (08:35)
[2017-04-05] MEDS: Aspirin Enteric Coated 81 MG Tablet PO SCH (08:35)
[2017-04-05] MEDS: amLODIPine 5 MG TABLET PO SCH (08:35)
[2017-04-05] MEDS ORDERED: Isosorbide MONOnitrate (24 HR) 30 MG TAB.ER.24H PO SCH (09:00)
== END 2017-04-05 14:00 | disposition home or self-care (01) ==
LOC: 3BNU 21:01 → EMEROO 21:01 → 3BNU 23:38
PROVIDERS: ADMIT Pediatrics; ATTEND Registered Nurse

== ENCOUNTER 2021-12-21 17:19 | Inpatient (IN) ==
[2021-12-21] MEDS ORDERED: Naloxone 0.4 MG/ML INJ IVP PRN (20:55)
[2021-12-21] MEDS ORDERED: Ondansetron 4 MG/2 ML VIAL IVP PRN (21:00)
[2021-12-21] MEDS ORDERED: D5% in Water 1,000 ML IVC PRN (21:23)
[2021-12-21] MEDS ORDERED: *HR* Dextrose 50 % in Water (Syg) 50 ML SYRINGE IVP PRN (21:23)
[2021-12-21] MEDS ORDERED: Dextrose Gel 15 GM/37.5 ML TUBE PO PRN ×2 (21:23)
[2021-12-21 21:36] LABS: Basophils % 0.6 %; Eosinophils % 0.2 %; Hematocrit 17.7 % (35.3-44.9); Immature Granulocytes % 0.2 % (0-4); Lymphocytes # 0.8 K/mcL (0.6-4.6); Lymphocytes % 16.5 %; Mean Corpuscular HGB Conc 32.2 g/dL (31.6-35.5); Mean Corpuscular Hemoglobin 29.5 pg (28.0-33.3); Mean Corpuscular Volume 91.7 fL (83.0-100.0); Mean Platelet Volume 9.7 fL (9.4-12.4); Monocytes # 0.3 K/mcL (0.0-1.3); Neutrophils # 3.7 K/mcL (1.6-8.9); Platelet Count 259 K/mcL (140-400); Red Blood Count 1.93 M/mcL (3.82-4.97); Red Cell Distribution Width 14.1 % (11.5-14.5); Segmented Neutrophils % 75.5 %; White Blood Count 4.9 K/mcL (4.3-11.1)
[2021-12-21 21:43] LABS: INR 1.2
[2021-12-21 21:46] LABS: Activated Partial Thrombo Time 28.2 Seconds (26.0-36.0)
[2021-12-21 22:13] LABS: Hemoglobin 5.7 g/dL (11.5-15.4)
[2021-12-21] MEDS: Pantoprazole 40 MG VIAL IVP SCH (22:15)
[2021-12-21] MEDS: Melatonin 3 MG TABLET PO PRN (22:16)
[2021-12-21] MEDS ORDERED: Nitroglycerin 0.4 MG TAB.SUBL SL PRN (22:41)
[2021-12-21 22:52] LABS: % Iron Saturation 8 % (15-50); Alanine Aminotransferase 11 Units/L (7-52); Albumin 3.6 g/dL (3.5-5.7); Albumin/Globulin Ratio 1.8 (1.1-2.2); Alkaline Phosphatase 31 Units/L (34-104); Aspartate Amino Transferase 17 Units/L (13-39); BUN/Creatinine Ratio 60 (6-26); Bilirubin,Total 1.3 mg/dL (0.3-1.0); Blood Urea Nitrogen 26 mg/dL (8-23); Calcium 9.4 mg/dL (8.6-10.3); Carbon Dioxide 25 mEq/L (23-29); Chloride 101 mEq/L (98-107); Glucose 186 mg/dL (70-105); Iron 33 mcg/dL (50-170); Osmolality,Calculated 290 (280-300); Potassium 3.4 mEq/L (3.5-5.1); Sodium 135 mEq/L (136-145); Total Protein 5.6 g/dL (6.4-8.9); Transferrin 288 mg/dL (203-362)
[2021-12-21] MEDS ORDERED: 0.9 % Sodium Chloride 250 ML ONE (22:58)
[2021-12-21 23:12] LABS: Folate > 22.3 ng/mL (3.0-16.0); Vitamin B12 > 1500 pg/mL (250-1100)
[2021-12-22] MEDS: Insulin LISPRO 300 UNITS/3 ML VIAL SUBQ SCH ×4 (00:06→18:23)
[2021-12-22 01:47] LABS: Bacteria,Urine Few per hpf (None-Few); Bilirubin,Urine Negative (Negative); Blood,Urine Negative (Negative); Clarity,Urine Clear (Clear); Color,Urine Light-Yellow (Yellow); Glucose,Urine (UA) Normal (Normal); Ketones,Urine Trace mg/dL (Negative); Leukocyte Esterase,Urine Moderate (Negative); Mucus,Urine Few per lpf (None-Few); Nitrite,Urine Negative (Negative); PH,Urine 5.5 pH Units (5.0-8.0); Protein,Urine Trace mg/dL (Neg-Trace); RBC,Urine 0-3 per hpf (0-3); Specific Gravity,Urine 1.022 (1.010-1.025); Squamous Epithelial Cell,Urine Few per hpf (None-Few); Urobilinogen,Urine Normal (Normal); WBC,Urine 15-30 per hpf (0-3)
[2021-12-22 03:30] LABS: Hematocrit 20.3 % (35.3-44.9); Hemoglobin 6.4 g/dL (11.5-15.4); Mean Corpuscular HGB Conc 31.5 g/dL (31.6-35.5); Mean Corpuscular Volume 91.9 fL (83.0-100.0); Mean Platelet Volume 9.4 fL (9.4-12.4); Platelet Count 223 K/mcL (140-400); Red Blood Count 2.21 M/mcL (3.82-4.97)
[2021-12-22] MEDS ORDERED: 0.9 % Sodium Chloride 250 ML ONE (03:46)
[2021-12-22 03:49] LABS: BUN/Creatinine Ratio 53 (6-26); Blood Urea Nitrogen 23 mg/dL (8-23); Calcium 9.2 mg/dL (8.6-10.3); Carbon Dioxide 27 mEq/L (23-29); Chloride 103 mEq/L (98-107); Chol/HDL Ratio 2.9 (0-4.9); Cholesterol 84 mg/dL (< 200); Glucose 138 mg/dL (70-105); HDL Cholesterol 29 mg/dL (40-59); LDL Cholesterol,Calculated 28 mg/dL (< 100); Osmolality,Calculated 288 (280-300); Potassium 3.5 mEq/L (3.5-5.1); Sodium 136 mEq/L (136-145); Triglycerides 137 mg/dL (< 150)
[2021-12-22] MEDS: carvediloL 6.25 MG TABLET PO SCH ×2 (09:08→18:23)
[2021-12-22 11:21] LABS: Hematocrit 25.3 % (35.3-44.9)
[2021-12-22 11:22] LABS: Hemoglobin 8.2 g/dL (11.5-15.4)
[2021-12-22] MEDS: Pantoprazole 40 MG VIAL IVP SCH ×2 (12:51→23:55)
[2021-12-22] MEDS ORDERED: Pantoprazole 40 MG VIAL IVP SCH (22:00)
[2021-12-22] MEDS: Melatonin 3 MG TABLET PO PRN (23:55)
[2021-12-23] MEDS: Insulin LISPRO 300 UNITS/3 ML VIAL SUBQ SCH ×4 (06:21→18:02)
[2021-12-23] MEDS: carvediloL 6.25 MG TABLET PO SCH ×2 (09:15→18:02)
[2021-12-23] MEDS: Pantoprazole 40 MG VIAL IVP SCH ×2 (09:15→23:23)
[2021-12-23 10:33] LABS: Basophils % 0.5 %; Eosinophils # 0.1 K/mcL (0.0-0.6); Eosinophils % 1.6 %; Hematocrit 25.4 % (35.3-44.9); Hemoglobin 8.1 g/dL (11.5-15.4); Immature Granulocytes % 0.2 % (0-4); Lymphocytes # 0.6 K/mcL (0.6-4.6); Lymphocytes % 10.1 %; Mean Corpuscular HGB Conc 31.9 g/dL (31.6-35.5); Mean Corpuscular Hemoglobin 28.9 pg (28.0-33.3); Mean Corpuscular Volume 90.7 fL (83.0-100.0); Mean Platelet Volume 9.5 fL (9.4-12.4); Monocytes # 0.4 K/mcL (0.0-1.3); Monocytes % 7.1 %; Neutrophils # 4.6 K/mcL (1.6-8.9); Platelet Count 216 K/mcL (140-400); Red Cell Distribution Width 14.5 % (11.5-14.5); Segmented Neutrophils % 80.5 %; White Blood Count 5.8 K/mcL (4.3-11.1)
[2021-12-23 10:51] LABS: BUN/Creatinine Ratio 27 (6-26); Blood Urea Nitrogen 12 mg/dL (8-23); Calcium 8.9 mg/dL (8.6-10.3); Carbon Dioxide 24 mEq/L (23-29); Chloride 104 mEq/L (98-107); Glucose 184 mg/dL (70-105); Osmolality,Calculated 283 (280-300); Potassium 3.7 mEq/L (3.5-5.1); Sodium 134 mEq/L (136-145)
[2021-12-23] MEDS: Melatonin 3 MG TABLET PO PRN (20:42)
[2021-12-24] MEDS: Insulin LISPRO 300 UNITS/3 ML VIAL SUBQ SCH ×4 (00:26→17:44)
[2021-12-24] MEDS ORDERED: D5% in 0.9% NACL 1,000 ML IVC SCH (09:30)
[2021-12-24] MEDS: Anastrozole 1 MG TABLET PO SCH (09:34)
[2021-12-24] MEDS: Pantoprazole 40 MG VIAL IVP SCH (09:34)
[2021-12-24] MEDS: carvediloL 6.25 MG TABLET PO SCH ×2 (09:35→17:40)
[2021-12-24] MEDS: Isosorbide MONOnitrate (24 HR) 30 MG TAB.ER.24H PO SCH (09:35)
[2021-12-24 11:34] LABS: Hematocrit 27.6 % (35.3-44.9); Hemoglobin 8.8 g/dL (11.5-15.4)
[2021-12-24] MEDS ORDERED: SODIUM CHLORIDE/NAHCO3/KCL/PEG 4,000 ML SOLN.RECON PO ONE (17:00)
[2021-12-25] MEDS: Melatonin 3 MG TABLET PO PRN ×2 (00:59→22:29)
[2021-12-25] MEDS: Pantoprazole 40 MG VIAL IVP SCH ×3 (00:59→22:30)
[2021-12-25 04:24] LABS: Basophils % 0.8 %; Eosinophils # 0.2 K/mcL (0.0-0.6); Eosinophils % 4.3 %; Hematocrit 25.2 % (35.3-44.9); Lymphocytes # 0.8 K/mcL (0.6-4.6); Lymphocytes % 22.1 %; Mean Corpuscular HGB Conc 31.7 g/dL (31.6-35.5); Mean Corpuscular Hemoglobin 28.9 pg (28.0-33.3); Mean Platelet Volume 9.3 fL (9.4-12.4); Monocytes # 0.3 K/mcL (0.0-1.3); Monocytes % 8.8 %; Neutrophils # 2.4 K/mcL (1.6-8.9); Platelet Count 212 K/mcL (140-400); Red Blood Count 2.77 M/mcL (3.82-4.97); Red Cell Distribution Width 14.3 % (11.5-14.5); White Blood Count 3.8 K/mcL (4.3-11.1)
[2021-12-25] MEDS: Insulin LISPRO 300 UNITS/3 ML VIAL SUBQ SCH ×4 (05:31→18:32)
[2021-12-25] MEDS ORDERED: Lidocaine -MPF 2% 2 ML VIAL ONE (13:25)
[2021-12-25] MEDS ORDERED: Simethicone 40 MG/0.6 ML MLS ONE (13:43)
[2021-12-25] MEDS ORDERED: *HR* Propofol 200 MG/20 ML VIAL IVP ONE (14:13)
[2021-12-25] MEDS ORDERED: *HR* EPINEPHrine 1 MG/10 ML SYRINGE INTRATRACH ONE (14:20)
[2021-12-25] MEDS: Anastrozole 1 MG TABLET PO SCH (15:15)
[2021-12-25] MEDS: carvediloL 6.25 MG TABLET PO SCH ×2 (15:15→17:37)
[2021-12-25] MEDS: Isosorbide MONOnitrate (24 HR) 30 MG TAB.ER.24H PO SCH (15:16)
[2021-12-25] MEDS ORDERED: Acetaminophen IV 500 MG/50 ML BAG IVPB ONE (21:42)
[2021-12-26] MEDS: Insulin LISPRO 300 UNITS/3 ML VIAL SUBQ SCH ×3 (00:05→13:24)
[2021-12-26] MEDS: carvediloL 6.25 MG TABLET PO SCH (08:24)
[2021-12-26] MEDS: Isosorbide MONOnitrate (24 HR) 30 MG TAB.ER.24H PO SCH (08:25)
[2021-12-26] MEDS: Anastrozole 1 MG TABLET PO SCH (08:25)
[2021-12-26] MEDS: Pantoprazole 40 MG VIAL IVP SCH (08:27)
[2021-12-26 08:31] LABS: Hematocrit 28.7 % (35.3-44.9)
[2021-12-26 09:14] VITALS: BP 113/50; PULSE 62; TEMP 98.2; O2SAT 96
[2021-12-26] MEDS ORDERED: Flu Vac QV 22-23 (6MOS UP)/PF 0.5 ML SYRINGE IM ONE (10:27)
== END 2021-12-26 13:35 | disposition home or self-care (01) | DRG 377 ==
LOC: 3ANU → SUATTDRO 12-22 14:06 → 3ANU 12-24 09:10
PROVIDERS: ADMIT Internal Medicine; ATTEND Internal Medicine